=== PATIENT | male | born 1950 | race Hispanic/Latino ===

== ENCOUNTER → 2021-03-11 13:13 | Outpatient (CLI) | payer OTHER, SELFPAY ==
[2021-03-11 14:07] LABS: COVID19 -Nasal RAPID Negative (Negative)
== END ==
PROVIDERS: PCP Physician Assistant Medical; Referring Provider Surgery; Visit Provider Surgery
DX: Z20.822 Contact with and (suspected) exposure to COVID-19 (principal); Z01.812 Encounter for preprocedural laboratory examination
CPT/HCPCS: 87635; C9803

== ENCOUNTER 2021-03-12 08:08 | Day surgery (SDC) | payer OTHER, SELFPAY ==
--- NOTE | 2021-03-12 | PATH_ITS ---
[facility] Accession Number: [id number] . 01 Material submitted: . PART A: colon - POLYP @25 CM SIGMOID COLON PART B: rectum - POLYP @15CM RECTAL . 02 Diagnosis: A. Polyp at 25 cm Sigmoid Colon: Tubular adenoma. . B. Polyp at 15 cm Rectal: Portions of hyperplastic polyp x3. MRV 03/17/2021 1031 Local . 02 Electronically signed: . Maria De Jesus Tilley MD, Pathologist NPI- [id number] . 01 Gross description: . Part A: POLYP @25 CM SIGMOID COLON: Received in formalin is 1 fragment(s) of vo, soft tissue measuring 0.6 x 0.4 x 0.3 cm submitted entirely in 1 cassette(s) Part B: POLYP @15CM RECTAL: Received in formalin are 3 fragment(s) of vo, soft tissue measuring 0.4 x 0.4 x 0.2 cm to 0.2 x 0.2 x 0.2 cm submitted entirely in 1 cassette(s) /[facility] 03/14/2021 1433 Local . 02 Pathologist provided ICD-10: K63.5 . 02 CPT . 819250, 775110 Performed at: 01 [facility] [address], [place], [place] [id number] MD Artemio Trejo MD Phone: [phone] Performed at: 02 [facility] [address] [place], [place] [id number] MD Tonya Foster MD Phone: [phone]
--- NOTE | 2021-03-12 08:25 | PM.HP.1 ---
History of Present Illness History of Present Illness Date Patient Seen: 03/12/21 Time Patient Seen: 08:25 Chief complaint: SDC Narrative: This is a 70-year-old man here for screening colonoscopy. His last colonoscopy was in 2008. He does not recall the findings from a colonoscopy, but he believes he has had polyps on prior colonoscopies in the past. He denies any current symptoms of melena, hematochezia, unexplained abdominal pain, unexplained weight loss. He denies any family history of colon cancer or colon polyps. ROS: Thirteen system review is otherwise negative other than as mentioned below and in HPI. PE: GENERAL: Well groomed and cooperative. Appears stated age. Answers questions promptly and appropriately. Vital signs noted. HENT: Normocephalic, atraumatic. Hearing intact. EYES: Conjunctiva pink, sclera white, no periorbital swelling. CARDIOVASCULAR: Regular rate. No pedal edema. RESPIRATORY: Non-tachypneic, breathing comfortably on room air. GASTROINTESTINAL: Abdomen soft and non-distended GENITALURINARY: No flank tenderness. MUSCULOSKELETAL: Equal tone and mass bilaterally. SKIN: Warm, dry, soft, appropriate color for ethnicity. No other lesions, rashes, or wounds. NEURO: Alert and Oriented X 3. No gross sensory deficits, or cognitive issues. PSYCH: Appropriate affect and mood. Patient History Family & Social History Family History Brother Cancer Social History: household members spouse Tobacco & Substance use: Smoking Status Former smoker alcohol intake never Meds Home Medications and Allergies Home Medications Medication Instructions Recorded Confirmed Type MULTIVITAMIN (One Daily 1 tab PO QDAY #0 11/10/11 05/18/19 History Multivitamin) Allergies Allergy/AdvReac Type Severity Reaction Status Date / Time No Known Drug Allergies Allergy Verified 03/12/21 08:21 Assessment & Plan Assessment and plan (1) At average risk for colon cancer: Status: Acute Assessment & Plan narrative: Risks and benefits of screening colonoscopy and possible polypectomy were discussed with the patient including risk of bleeding, perforation, need for additional procedures, risks of anesthesia. The patient desires to proceed with the colonoscopy procedure. COVID-19 COVID-19 status: Negative Result date/Date tested (Pos, Neg/Pending): 03/11/21 Time Spent With Patient Time with patient: 15-24 minutes Quality VTE Deep Vein Thrombosis/Pulmonary Embolism Present on Admission: No
[2021-03-12 08:27] VITALS: BP 135/76; PULSE 53; RESP 16; TEMP 35.9; O2SAT 99
[2021-03-12 08:30] VITALS: BMI 26.6
[2021-03-12] MEDS: SODIUM CHLORIDE 0.9% 1,000 ML 200 ML IV (08:49)
--- NOTE | 2021-03-12 09:06 | P.OP.ENDO_ITS ---
Operative Date/Time/Diagnoses Date of procedure: 03/12/21 Time of procedure: 09:06 Pre-op diagnosis: Personal history of colon polyps, here for surveillance colonoscopy Post-op diagnosis: other (Two polyps) Procedure & Clinicians Study performed: Colonoscopy Procedural sedation performed by the endoscopy Polypectomy x2 with Jumbo forceps Same procedure as scheduled: Yes Indications: Personal history of colon polyps, due for surveillance colonoscopy Surgeon: Lisy Melgar Procedure Notes SCOAP/Timeout: Performed Procedure in detail: The patient was brought to the room and placed in left lateral decubitus position with all bony prominences padded. A time-out was performed and then the patient was given procedural sedation starting with 2 mg of Versed [id number]] mcg of fentanyl. Vitals were monitored throughout the p rocedure and remained stable. Once adequately sedated, the procedure was begun. A rectal exam was performed revealing no abnormalities. The colonoscope was then introduced to the rectum and advanced to the cecum in the usual fashion. ]The cecum was identified by the appendiceal orifice, the mucosal tri-fold, and the ileocecal valve. The scope was then retracted while rotating side to side and examining each mucosal fold. Two polyps were found and removed with Jumbo forceps 1 at 25 cm and 1 at 15 cm. The both appeared benign/precancerous. At the conclusion of the procedure retroflexion was performed and [small grade 1-2 internal hemorrhoids without stigmata of bleeding were seen. The scope was then withdrawn from the rectum the procedure was concluded. The patient tolerated the procedure well and was transferred to the PACU in stable condition. Scope withdrawal time: 11 Sedation minutes: 19 Findings: polyp Specimen(s): other (2 polyps) Complications: none Impression: Two benign/precancerous appearing polyp Post-procedure Recommendations: Colonscopy in 5 years Follow up: as needed Disposition: PACU
[2021-03-12] MEDS: fentaNYL 250 MCG/5 ML INJ IV (09:31)
[2021-03-12 09:32] VITALS: BP 109/66; PULSE 56; RESP 11; TEMP 36.6; O2SAT 98
[2021-03-12] MEDS: MIDAZOLAM 5 MG/5 ML VIAL IV (09:32)
[2021-03-12 09:37] VITALS: BP 109/60; PULSE 52; RESP 11; O2SAT 97
[2021-03-12 09:42] VITALS: BP 105/62; PULSE 55; RESP 12; O2SAT 97
[2021-03-12 09:47] VITALS: BP 112/67; PULSE 53; RESP 18; TEMP 36.6; O2SAT 98
[2021-03-12 09:52] VITALS: BP 114/63; PULSE 51; RESP 12; TEMP 36.3; O2SAT 99
== END 2021-03-12 10:00 | disposition home or self-care (01) ==
LOC: ENDO 08:10
PROVIDERS: PCP Physician Assistant Medical; Referring Provider Surgery; Visit Provider Surgery
PROC: 0DJD8ZZ Inspection of Lower Intestinal Tract, Via Natural or Artificial Opening Endoscopic (ICD-10-PCS; CPT 45378; principal; 2021-03-12 09:15)
DX: Z12.11 Encounter for screening for malignant neoplasm of colon (principal); Z86.010 Personal history of colon polyps; K64.0 First degree hemorrhoids; D12.6 Benign neoplasm of colon, unspecified
CPT/HCPCS: 45380; 45378; 99152; J2250; J3010